=== PATIENT | female | born 1980 | race Caucasian/White ===

== ENCOUNTER 2017-04-05 09:09 | Inpatient (IN) | payer OTHER ==
[~2017-04-05] VITALS: Ht 165.1 cm; Wt 99.3 kg
[~2017-04-05 09:09] MED LIST: ANTIVERT 25 MG25 MG PO; BENTYL10 M1 PO; MONTELUKAST SOD10 M1 PO; VENTOLIN HFA18 GM INH; ZOFRAN ODT4 M1 SL; ZOFRAN ODT4 MG SL; [UNRECOGNIZED DRUG - OTHER] PO
[2017-04-05] MEDS ORDERED: ASPIRIN EC81 M1 PO (09:16)
[2017-04-05] MEDS ORDERED: TUMS200 MG PO (09:17)
[2017-04-05 09:24] VITALS: BP 138/84
--- NOTE | 2017-04-05 10:21 | History & Physical ---
General Information and HPI MD Statement: I have seen and personally examined CAROLYN OBANDO and documented this H&P. The patient is a 37 year old female at [40] weeks and 0 days gestation who presented with a chief complaint of [induction of labor for preeclampsia with mild features]. Source of Information: patient Exam Limitations: no limitations History of Present Illness: 37-year-old 4 para 2011 who presents at 40 weeks gestation for induction of labor. The patient was seen in the office yesterday . And was referred to the childbirth center for elevated blood pressures of 150/80 and 162/98. Blood work was within normal limits however her urine total protein creatinine ratio was 0.6. The fetus was reactive. The patient was referred for induction of labor today. Her is remarkable for a history of gestational hypertension with her last . She's been taking baby aspirin throughout her her last dose was yesterday. Additionally she has history of oligohydramnios with her previous . She is advanced for maternal age. She has a history of asthma and colitis. Allergies/Medications Allergies: Coded Allergies: Sulfa (Sulfonamide Antibiotics) (ANAPHYLAXIS 04/05/17) cephalexin (ANAPHYLAXIS 05/08/16) Home Med list Albuterol Sulfate (Ventolin Hfa) 18 GM HFA.AER.AD 2 PUF INH PRN SOB/WHEEZING (Reported) Aspirin (Ecotrin*) 81 MG TABLET.DR 1 TAB PO DAILY blood pressure (Reported) Calcium Carbonate (TUMS) 200 MG CALCIUM (500 MG) TAB.CHEW 2 TAB PO Q4 ACID REFLUX (Reported) Montelukast Sodium 10 MG TABLET 1 TAB PO DAILY ALLERGIES (Reported) Vit No.87/Iron/FA/Dha (Prenate Mini Softgel) 1 EACH CAPSULE 1 TAB PO DAILY SUPPLEMENT (Reported) Compliance With Home Meds: GOOD Past History top lift compressor History : 4 Para: 2 Last Menstrual Period: 06/29/2016 Estimated Delivery Date: April 05 Past top lift compressor History: HTN- associated, oligohydramnios, hemmorage, 2009 HEMORRHAGE OR RETAINED PRODUCTS OF CONCEPTION. pATIENT HAD A POST d&c WITH dR. Handy 2012 GESTATIONAL HYPERTENSION WITH SECOND , DID NOT RECEIVE MAG SULFATE, Past Pregnancies Past Pregnancies: Date of Delivery: 2009, 7 pound female, pph uterine atony/retained POCs, PP Dand C with Dr. Villatoro February 2013 8 pound male infant, hypertension and oligohydramnios. 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 EENTM: Reports: no symptoms. Cardiovascular: Reports: no symptoms. Respiratory: Reports: no symptoms. GI: Reports: no symptoms. Genitourinary: Reports: see HPI. Musculoskeletal: Reports: no symptoms. Skin: Reports: no symptoms. Neurological/Psychological: Reports: no symptoms. Hematologic/Endocrine: Reports: no symptoms. Immunologic/Allergic: Reports: no symptoms. All Other Systems: Reviewed and Negative Exam & Diagnostic Data Last 24 Hrs of Vital Signs/I&O Vital Signs Date Time Temp Pulse Resp B/P B/P Pulse O2 O2 Flow FiO2 Mean Ox Delivery Rate 04/05 0924 138/84 Intake & Output 04/05 1600 04/05 0800 04/05 0000 Intake Total Output Total Balance Patient 219 lb Weight Obstetric Exam Wgt Gained During : 30 pounds Pelvimetry: Proven to 8 pounds Dilation (cm): 1 (0.5cm) Effacement (%): 50 Station: -2 Membranes: intact Fluid: unknown Fundal Height (cm): 40 Multiple Gestation? No Contractions: None Infant #1 - FHR Baseline: 140 Category: 1 Estimated Weight: 8 Presentation: Vertex Patient for Induction? Yes Mcdonnell Score Mcdonnell Score Response Value Cervix Position: posterior 0 Cervix Consistency: medium 1 Cervix Effacement: 30-50% 1 Cervix Dilation: 1-2 cm 1 Total 3 Physical Exam General Appearance Alert, Oriented X3, Cooperative Skin No Rashes, No Breakdown, No Significant Lesion HEENT Atraumatic, PERRLA, EOMI, Mucous Membr. moist/pink Cardiovascular Regular Rate, Normal S1, Normal S2 Lungs Clear to Auscultation, Normal Air Movement Abdomen Normal Bowel Sounds, Soft, No Tenderness, No Hepatospenomegaly, No Masses, gravid Neurological Normal Gait, Normal Speech, Strength at 5/5 X4 Ext, Normal Tone Extremities No Clubbing, No Cyanosis, No Edema Vascular Normal Pulses, Pulses Symmetrical Reproductive (FEMALE) Normal female genitalia Labs Blood Type & Rh: Apos Antibody Screen: Negative Hct/Hgb & Platelets #1: 13.8 ,41.1 and 212 Hct/Hgb & Platelets #2: 12.3, 37.2, 188 Rubella: Immune VDRL #1: Negative VDRL #2: Negative HbsAg: Negative HIV #1: Negative HIV #2 Negative 1 Hr P Group B Strep: Positive Initial Ultrasound: declined 1st trimester screen Anatomy Ultrasound: 20 weeks and 6 days Ultrasound for EFW: 35 weeks and 6 days 50th percentile, anterior placenta Genetic Testing: Declined first trimester screening, normal hemoglobin electrophoresis plain amniocentesis or CVS negative cystic fibrosis Last 24 Hrs of Labs/Shyam: Laboratory Tests 04/05/17 1000: Urine Color Pending, Urine Clarity Pending, Urine pH Pending, Ur Specific [place] Pending, Urine Protein Pending, Urine Ketones Pending, Urine Nitrite Pending, Urine Bilirubin Pending, Urine Urobilinogen Pending, Ur Leukocyte Esterase Pending, Ur Microscopic Pending, Urine Hemoglobin Pending, Urine Glucose Pending 04/05/17 0940: CBC w Diff Pending, WBC Pending, RBC Pending, Hgb Pending, Hct Pending, MCV Pending, MCH Pending, RDW Pending, Plt Count Pending, MPV Pending, PUBS MCHC Pending Assessment/Plan Assessment/Plan: 37-year-old 4 para 2 at 40 weeks gestation presents for induction of labor for gestational hypertension/pre-eclampsia with mild features. Upon review of her chart her first office visit she had a blood pressure of 140/88 to 90 and then normal blood pressures until 37 weeks and 6 days which was 140/84, and the following visit which was 142/82 and then yesterday 150-162/80- 98. Risks, benefits, alternatives of misoprostol induction of labor was discussed. Misoprostol placed this morning at approximately 10 AM . Plan cervical ripening today and Pitocin in the a.m. History is also notable for asthma and a hemorrhage after her first delivery. Plan epidural as needed. Plan penicillin for GBS prophylaxis. As Ranked By This Provider Problem List: 1. Core Measures/Miscellaneous Venous Thromboembolism VTE Risk Factors: / VTE Contraindications: No Contraindications VTE Diagnosis: No Beta Steve Is Beta Steve a Home Med? No Antibiotics Is Patient on Antibiotics? No Attending MD Review Statement Attending Statement Attending MD Statement: examined this patient, discussed with family
[2017-04-05 11:47] LABS: ABSOLUTE BASOPHIL COUNT 0 /CUMM (0.0-0.2); ABSOLUTE EOSINOPHIL COUNT 0 /CUMM (0.0-0.7); ABSOLUTE LYMPH COUNT 1.5 /CUMM (1.2-3.4); ABSOLUTE MONOCYTE COUNT 0.4 /CUMM (0.10-0.60); BASOPHIL % 0.6 % (0.0-2.0); EOSINOPHIL % 0.5 % (0-5); GRANULOCYTE % 75.3 % (42.2-75.2); MEAN CORPUSCULAR VOLUME 88.4 FL (81.0-99.0); MEAN PLATELET VOLUME 11.5 FL (7.4-10.4); PLATELET COUNT 163 /CUMM (130-400); RBC DISTRIBUTION WIDTH 13.2 % (11.5-14.5); RED BLOOD CELL CT 4.18 /CUMM (4.20-5.40)
--- NOTE | 2017-04-06 14:19 | PN- OBGYN ---
Subjective Subjective: feeling well Review of Systems Constitutional: Reports: no symptoms. Denies: chills, fever. Cardiovascular: Denies: chest pain, palpitations. Neurological/Psychological: Denies: ataxia, depressed. Objective Last 24 Hrs of Vital Signs/I&O vss Physical Exam General Appearance Alert, Oriented X3, Cooperative, No Acute Distress Cardiovascular Regular Rate Lungs Clear to Auscultation Abdomen Soft, No Tenderness Obstetric Exam Dilation (cm): 1 Effacement (%): 50 Station: -2 Membranes: SROM Fluid: clear Multiple Gestation? No Contractions: irr #1 - FHR Baseline: 140 Category: 1 Estimated Weight: 8 Presentation: Vertex Current Medications: Current Medications Sig/Leslee Start time Last Medication Dose Route Stop Time Status Admin Butorphanol Tartrate 1 MG Q4P PRN 04/05 0930 AC 04/06 IV 1222 Butorphanol Tartrate 1 MG Q4P PRN 04/05 0930 AC IM Hydroxyzine HCl 100 MG AT BEDTIME PRN 04/05 2200 AC 04/06 PO 0015 Lactated Ringer's 1,000 ML Q8H 04/05 0930 AC 04/06 IV 1305 Misoprostol 25 MCG Q4P PRN 04/05 1030 AC 04/05 VAG 1004 Morphine Sulfate 10 MG ONCE ONE 04/05 1815 DC IM 04/05 1816 Oxytocin 30 UNITS PER PROTOCL 04/06 0745 AC Lactated Ringer's 500 ML IV Oxytocin 30 UNITS PER PROTOCL 04/05 1030 DC Lactated Ringer's 500 ML IV 04/06 1029 Vancomycin HCl 1,000 MG Q12 04/05 1136 AC 04/06 Sodium Chloride 250 ML IV 1306 Last 24 Hrs of Labs/Shyam: Laboratory Tests 04/06/17 1100: Membrane Rupture POSITIVE Microbiology 04/06 1414 URINE ROUT: Urine Culture - COLB Assessment/Plan Assessment/Plan pt now starting on pitocin for induction of labor cx 2 cm SROM clear Problem List: 1. Attending MD Review Statement Attending Statement Attending MD Statement: examined this patient, discussed with family, discussed w/nursing
--- NOTE | 2017-04-06 22:30 | Labor & Delivery Summary ---
Delivery Summary Vaginal Delivery: Vaginal: vertex Episiotomy/Lacerations: Type: 2 degree Repair: 3-0 polysorb Anesthesia: epidural Placenta: Placenta: spontanteous, normal, 3 vessel, nuchal cord (x_) Anesthesia: block Apgars - 1 Min: 9 Apgars - 5 Min: 9 Additional Comments: OP
[2017-04-07 06:08] LABS: ABSOLUTE BASOPHIL COUNT 0 /CUMM (0.0-0.2); ABSOLUTE EOSINOPHIL COUNT 0 /CUMM (0.0-0.7); ABSOLUTE GRANULOCYTE CT 10.9 /CUMM (1.4-6.5); ABSOLUTE LYMPH COUNT 1.4 /CUMM (1.2-3.4); ABSOLUTE MONOCYTE COUNT 0.6 /CUMM (0.10-0.60); BASOPHIL % 0 % (0.0-2.0); EOSINOPHIL % 0 % (0-5); GRANULOCYTE % 84.5 % (42.2-75.2); MEAN CORPUSCULAR HGB 30.2 PG (27.0-31.0); MEAN CORPUSCULAR VOLUME 88.8 FL (81.0-99.0); MEAN PLATELET VOLUME 11.2 FL (7.4-10.4); PLATELET COUNT 135 /CUMM (130-400); RBC DISTRIBUTION WIDTH 13.4 % (11.5-14.5); RED BLOOD CELL CT 3.32 /CUMM (4.20-5.40)
[2017-04-07 06:17] LABS: HEMATOCRIT 29.5 % (37-47); WHITE BLOOD CELL COUNT 12.9 /CUMM (4.8-10.8)
--- NOTE | 2017-04-07 10:29 | PN- OBGYN ---
Surgical Brief Attending Note Brief Attending Note: PPD#1 pt is doing well, no complaints. tolerate diet, void without difficulties. PE: VSS Cv RRR lungs CTA B/L abdomen: soft, nontender, uterus firm, fundus below umbilicus. lochia mild ext: DCT (-) A/P: 37yo, s/p , PPD #1 1. encourage ambulation and breast feeding 2.RT PP care
[2017-04-08] MEDS ORDERED: IBUPROFEN800 M1 PO (08:29)
--- NOTE | 2017-04-08 08:31 | PN- OBGYN ---
Surgical Brief Attending Note Brief Attending Note: PPD#2 pt is ambulating, no complaints. PE: VSS Cv RRR lungs CTA B/L Abdomen: soft, nontender, uterus firm , fundus below umbilicus, lochia mild Ext: edema(+), DCT (-) A/P: 37yo, s/p , PPD#2 1. encourage ambualtion 2. pain management as needed 3. will d/c home, f/u in office in 2 wks and 6 wks
== END 2017-04-08 10:30 | DRG 775 ==
LOC: GNO 09:09
PROVIDERS: Obstetrics & Gynecology; ADMIT Obstetrics & Gynecology
PROC: 3E0P7GC Introduction of Other Therapeutic Substance into Female Reproductive, Via Natural or Artificial Opening (ICD-10-PCS; 2017-04-05)
PROC: 10E0XZZ Delivery of Products of Conception, External Approach (ICD-10-PCS; principal; 2017-04-06)
PROC: 0KQM0ZZ Repair Perineum Muscle, Open Approach (ICD-10-PCS; 2017-04-06)
DX: O14.04 Mild to moderate pre-eclampsia, complicating childbirth (principal); J45.909 Unspecified asthma, uncomplicated; O13.4 Gestational [pregnancy-induced] hypertension without significant proteinuria, complicating childbirth; O09.523 Supervision of elderly multigravida, third trimester; Z3A.40 40 weeks gestation of pregnancy; Z37.0 Single live birth; O70.1 Second degree perineal laceration during delivery; O69.81X0 Labor and delivery complicated by cord around neck, without compression, not applicable or unspecified
CPT/HCPCS: GNOP; GNOS; 36415; 81001; 82570; 84112; 87086; J1885; J3370; J7040; J7120

== ENCOUNTER 2017-04-12 15:48 | Inpatient (IN) | payer OTHER ==
[~2017-04-12] VITALS: Ht 165.1 cm; Wt 92.5 kg
[~2017-04-12 15:48] MED LIST changes: +ASPIRIN EC81 M1 PO; +IBUPROFEN800 M1 PO; +TUMS200 MG PO
--- NOTE | 2017-04-12 16:25 | NUR ---
SENT BY DR. PERRIN FOR EVALUATION. S/P VAGINAL DELIVERY ON 04/06, (GR 3,P3) AT FOLLOW-UP APPOINTMENT ON 04/08, PT HAD HIGH BP, (168/82) PUT ON LABETOLOL 100 MG, HAS HAD 2 DOSES, FEELING WORSE WITH R SIDED NECK PAIN. STATES SHE PUSHED FOR 2 HOURS AT DELIVERY AND HAD PAIN ALL OVER AFTER.
--- NOTE | 2017-04-12 18:01 | ED GENERAL ADULT ---
History of Present Illness General Chief Complaint: General Adult Stated Complaint: HIGH BP Source: patient, family, old records Exam Limitations: no limitations Vital Signs & Intake/Output Vital Signs & Intake/Output Vital Signs Date Time Temp Pulse Resp B/P B/P Pulse O2 O2 Flow FiO2 Mean Ox Delivery Rate 04/12 1815 99.2 57 20 182/90 98 Room Air 04/12 1617 98.9 84 20 168/110 99 Room Air Allergies Coded Allergies: cephalexin (Severe, ANAPHYLAXIS 04/08/17) Reconcile Medications Albuterol Sulfate (Ventolin Hfa) 18 GM HFA.AER.AD 2 PUF INH PRN SOB/WHEEZING (Reported) Calcium Carbonate (TUMS) 200 MG CALCIUM (500 MG) TAB.CHEW 2 TAB PO Q4 ACID REFLUX (Reported) Labetalol HCl 100 MG TABLET 1 TAB PO BID BP (Reported) Montelukast Sodium 10 MG TABLET 1 TAB PO DAILY ALLERGIES (Reported) Triage Note: SENT BY DR. PERRIN FOR EVALUATION. S/P VAGINAL DELIVERY ON 04/06, (GR 3,P3) AT FOLLOW-UP APPOINTMENT ON 04/08, PT HAD HIGH BP, PUT ON LABETOLOL 100 MG, HAS HAD 2 DOSES, FEELING WORSE WITH R SIDED NECK PAIN. STATES SHE PUSHED FOR 2 HOURS AT DELIVERY AND HAD PAIN ALL OVER AFTER. Triage Nurses Notes Reviewed? yes : No Patient currently breastfeeds: No HPI: Patient is 6 days . Patient's blood pressure has been running elevated over the past 4 days. Patient denies any nausea or vomiting. There is no blurry vision. Patient had outpatient lab work which reportedly was okay. Patient was started on labetalol yesterday afternoon however her blood pressure remained elevated activities appointments she's was sent in for admission for presumed preeclampsia. Patient denies any chest pain or shortness of breath. Past History Travel History Traveled to [place] past 21 day No Medical History Any Pertinent Medical History? 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 No Review of Systems Review of Systems Constitutional: Reports: no symptoms. EENTM: Reports: no symptoms. Respiratory: Reports: no symptoms. Cardiovascular: Reports: no symptoms. GI: Reports: no symptoms. Genitourinary: Reports: no symptoms. Musculoskeletal: Reports: no symptoms. Skin: Reports: no symptoms. Neurological/Psychological: Reports: no symptoms. Hematologic/Endocrine: Reports: no symptoms. Immunologic/Allergic: Reports: no symptoms. All Other Systems: Reviewed and Negative Physical Exam Physical Exam General Appearance: well developed/nourished, alert, awake Head: atraumatic, normal appearance Eyes: Bilateral: PERRL, EOMI. Ears, Nose, Throat: normal pharynx, normal ENT inspection, hearing grossly normal Neck: normal inspection, supple, full range of motion, MUSCLE SPASM RIGHT POSTERIOR NECK Respiratory: normal breath sounds, chest non-tender, no respiratory distress, lungs clear Cardiovascular: regular rate/rhythm, normal peripheral pulses Gastrointestinal: normal bowel sounds, soft, non-tender, no organomegaly Extremities: normal inspection, normal capillary refill, normal range of motion, pedal edema Neurologic/Psych: no motor/sensory deficits, awake, alert, oriented x 3, normal gait, normal mood/affect Reflexes: 3+: tricep (L), tricep (L). 4+: bicep (R), bicep (L), knee (R), knee (L). Skin: intact, normal color, warm/dry Lymphatic: no anterior cervical angelita Core Measures ACS in differential dx? No CVA/TIA Diagnosis: No Severe Sepsis Present: No Septic Shock Present: No Progress Differential Diagnoses I considered the following diagnoses in my evaluation of the patient: [ Preeclampsia, HELLP syndrome, hypertension] Plan of Care: Orders Procedure Date/time Status Add-on Test (ER Only) 04/12 1826 Active LDH (LACT ACID DEHYDROGENASE) 04/12 1815 Active Admit to inpatient 04/12 1806 Active URINALYSIS 04/12 1739 Complete TROPONIN LEVEL 04/12 1739 Active COMPREHENSIVE METABOLIC PANEL 04/12 1739 Active CHOLESTEROL 04/12 1739 Active CBC WITHOUT DIFFERENTIAL 04/12 1739 Complete EKG 04/12 1628 Active Current Medications Sig/Leslee Start time Last Medication Dose Stop Time Status Admin Magnesium Sulfate 40 GM ONE 04/12 2000 AC (Mag Sulfate Infusion 40MG/ML) Water 1,000 ML (Sterile Water) Magnesium Sulfate 6 GM ONCE ONE 04/12 1845 AC Sodium Chloride 100 ML 04/12 2312 (Normal Saline 0.9%) Magnesium Sulfate 6 GM ONCE ONE 04/12 1800 CAN (Mag Sulfate in D5) 04/12 2159 Dextrose/Water 100 ML (D5W) Magnesium Sulfate 6 GM ONCE 04/12 0000 NR Sodium Chloride 100 ML 04/12 2359 (Normal Saline 0.9%) Laboratory Tests 04/12/17 1815: Sodium Pending, Potassium Pending, Chloride Pending, Carbon Dioxide Pending, Anion Gap Pending, BUN Pending, Creatinine Pending, BUN/Creatinine Ratio Pending , Glucose Pending, Calcium Pending, Total Bilirubin Pending, AST Pending, ALT Pending, Alkaline Phosphatase Pending, Lactate Dehydrogenase Pending, Troponin I Pending, Total Protein Pending, Albumin Pending, Globulin Pending, Albumin/ Globulin Ratio Pending, Cholesterol Pending, CBC w Diff NO MAN DIFF REQ, RBC 4.33, MCV 89.9, MCH 29.8, RDW 13.0, MPV 8.9, Gran % 69.6, Lymphocytes % 21.7, Monocytes % 6.6, Eosinophils % 1.6, Basophils % 0.5, Absolute Granulocytes 6.2, Absolute Lymphocytes 1.9, Absolute Monocytes 0.6, Absolute Eosinophils 0.1, Absolute Basophils 0, PUBS MCHC 33.1, Urine Color STRAW, Urine Clarity CLEAR, Urine pH 6.5, Ur Specific [place] <= 1.005, Urine Protein NEG, Urine Ketones NEG , Urine Nitrite NEG, Urine Bilirubin NEG, Urine Urobilinogen 0.2, Ur Leukocyte Esterase SMALL H, Ur Microscopic SEDIMENT EXAMINED, Urine RBC 1-3, Urine WBC 1- 3 H, Ur Epithelial Cells RARE, Urine Hemoglobin LARGE H, Urine Glucose NEG Initial ED EKG: SR WITH BORDERLINE VOLTAGE CRITERIA FOR LVH Comments: pt to be given Mag sulfate 6g over 30 minutes. Departure Departure Disposition: STILL A PATIENT Condition: Guarded Clinical Impression Primary Impression: Preeclampsia Qualifiers: Trimester: unspecified trimester Qualified Code: O14.90 - Unspecified pre-eclampsia, unspecified trimester Referrals: COREY FORRESTER,INGE Lazaro (PCP/Family) Departure Forms: Customer Survey General Discharge Information Admission Note Spoke With: KATHRYN FORRESTER,STEPHAN Guevara Documentation of Exam: Documentation of any treatments & extenuating circumstances including Concerns Regarding Discharge (functional status, medication knowledge or non-compliance, living conditions, etc.) that warrant an admission rather than observation: [ MAGNESIUM DRIP, CLOSE MONITORING] Critical Care Note Critical Care Note Critical Care Time: mins: (45 MIN)
--- NOTE | 2017-04-12 18:22 | NUR ---
BLOOD WORK DRAWN AND SENT TO LAB: SST, LAV, BLUE, MCKAY AND PINK TOPS. URINE TRIO ALSO SENT TO LAB. IV EST TO [facility].
[2017-04-12] MEDS ORDERED: LABETALOL HCL100 M1 PO (18:31)
[2017-04-12 18:40] LABS: ABSOLUTE BASOPHIL COUNT 0 /CUMM (0.0-0.2); ABSOLUTE EOSINOPHIL COUNT 0.1 /CUMM (0.0-0.7); ABSOLUTE GRANULOCYTE CT 6.2 /CUMM (1.4-6.5); ABSOLUTE LYMPH COUNT 1.9 /CUMM (1.2-3.4); ABSOLUTE MONOCYTE COUNT 0.6 /CUMM (0.10-0.60); BASOPHIL % 0.5 % (0.0-2.0); EOSINOPHIL % 1.6 % (0-5); GRANULOCYTE % 69.6 % (42.2-75.2); HEMATOCRIT 38.9 % (37-47); MEAN CORPUSCULAR HGB 29.8 PG (27.0-31.0); MEAN CORPUSCULAR HGB CONC 33.1 G/DL (33.0-37.0); MEAN CORPUSCULAR VOLUME 89.9 FL (81.0-99.0); MEAN PLATELET VOLUME 8.9 FL (7.4-10.4); PLATELET COUNT 269 /CUMM (130-400); RED BLOOD CELL CT 4.33 /CUMM (4.20-5.40); WHITE BLOOD CELL COUNT 8.9 /CUMM (4.8-10.8)
--- NOTE | 2017-04-12 19:16 | NUR ---
PT MEDICATED WITH MAG SULFATE PER VERBAL ORDER OF DR. ROLAND. 100MLS AT 200 MLS/HR (OVER 30 MINS). DOSE/PROTOCOL VERIFIED WITH PHARMACIST. DOSE ALSO VERIFIED WITH TATO LUKE. PT ON ALUMNI COORDINATOR WITH CYCLING BP'S.
--- NOTE | 2017-04-12 19:33 | NUR ---
PT REPORTS FEELING HOT WHILE MAGNESIUM IS RUNNING. VSS, BP160/84 MANUALLY. AFEBRILE. MD ROLAND AWARE AND MAGNESIUM INFUSION SLOWED TO 50MLS/HR PER MD ROLAND.
--- NOTE | 2017-04-12 20:07 | NUR ---
MAG SULFATE INFUSION RUNNING 40G AT 50MLS/HR PER ORDER. PT TOLERATING INFUSION WELL. VSS. DENIES BLURRED VISION.
--- NOTE | 2017-04-12 20:27 | NUR ---
PT C/O 05/04 HEADACHE. MD ROLAND TO BEDSIDE. PT DENIES DIZZINESS, BLURRED VISION. VSS. MEDICATED WITH TORADOL PER EMAR. PT TOLERATED WELL. WILL CTM AND REEVAL.
--- NOTE | 2017-04-12 20:31 | NUR ---
PT HAS 2+ NORMAL DEEP TENDON REFLEXES NOTED.
--- NOTE | 2017-04-12 21:56 | NUR ---
REPORT GIVEN TO [facility] TRANSPORT BOOKED
[2017-04-13 01:30] VITALS: BP 166/100
--- NOTE | 2017-04-13 03:45 | History & Physical ---
General Information and HPI MD Statement: I have seen and personally examined CAROLYN OBANDO and documented this H&P. The patient is a 37 year old F who presented with a patient stated chief complaint of post PIH Source of Information: patient, old records Exam Limitations: no limitations History of Present Illness: pt is s/p delivery has been in the office with elevated BP and Headache Allergies/Medications Allergies: Coded Allergies: cephalexin (Severe, ANAPHYLAXIS 04/08/17) Home Med list Albuterol Sulfate (Ventolin Hfa) 18 GM HFA.AER.AD 2 PUF INH PRN SOB/WHEEZING (Reported) Calcium Carbonate (TUMS) 200 MG CALCIUM (500 MG) TAB.CHEW 2 TAB PO Q4 ACID REFLUX (Reported) Labetalol HCl 100 MG TABLET 1 TAB PO BID BP (Reported) Montelukast Sodium 10 MG TABLET 1 TAB PO DAILY ALLERGIES (Reported) Compliance With Home Meds: GOOD Past History Travel History Traveled to [place] past 21 day No Medical History Neurological: NONE EENT: NONE Cardiovascular: NONE, MATERNAL ARRHYTHMIA 2012, ADMITTED TO TELEMETRY NEGATIVE CARDIAC EVALUATION AND NORMAL ECHO Respiratory: asthma Gastrointestinal: colitis, ULCERATIVE CHOLANINEOUS Hepatic: NONE Renal: NONE Musculoskeletal: NONE Psychiatric: NONE Endocrine: NONE Blood Disorders: NONE 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 EENTM: Denies: blurred vision, double vision, visual changes. Cardiovascular: Reports: edema. Denies: chest pain. Respiratory: Denies: cough, short of breath. GI: Denies: abdominal pain, constipation, nausea, vomiting. Genitourinary: Denies: dysuria. Neurological/Psychological: Reports: headache. Denies: anxiety, confusion, depressed, numbness, tremors, tonic-clonic seizures. Exam & Diagnostic Data Last 24 Hrs of Vital Signs/I&O Vital Signs Date Time Temp Pulse Resp B/P B/P Pulse O2 O2 Flow FiO2 Mean Ox Delivery Rate 04/13 0130 97.0 65 20 166/100 04/12 2250 97.6 66 18 176/98 04/12 2130 60 140/70 04/12 2006 98.6 68 18 172/88 99 Room Air 04/12 1935 98.2 67 18 160/84 99 Room Air 04/12 1921 Room Air Room Air 04/12 1815 99.2 57 20 182/90 98 Room Air 04/12 1617 98.9 84 20 168/110 99 Room Air Intake & Output 04/13 0800 04/13 0000 04/12 1600 Intake Total 0 Output Total Balance 0 Intake, Oral 0 Patient 204 lb Weight Weight Reported by Patient Measurement Method Physical Exam General Appearance Alert, Oriented X3, Cooperative, No Acute Distress Cardiovascular Regular Rate Lungs Clear to Auscultation Neurological Normal Gait, Normal Speech, Strength at 5/5 X4 Ext, Reflexes 2+ Last 24 Hrs of Labs/Shyam: Laboratory Tests 04/13/17 0100: Magnesium 4.7 H 04/12/17 181: Anion Gap 11, Estimated GFR > 60, BUN/Creatinine Ratio 10.0, Glucose 76, Calcium 10.1, Total Bilirubin 0.4, AST 34, ALT 42, Alkaline Phosphatase 90, Lactate Dehydrogenase 705 H, Troponin I < 0.01, Total Protein 6.9, Albumin 3.8, Globulin 3.1, Albumin/Globulin Ratio 1.2, Cholesterol 255 H, CBC w Diff NO MAN DIFF REQ, RBC 4.33, MCV 89.9, MCH 29.8, RDW 13.0, MPV 8.9, Gran % 69.6, Lymphocytes % 21.7, Monocytes % 6.6, Eosinophils % 1.6, Basophils % 0.5, Absolute Granulocytes 6.2, Absolute Lymphocytes 1.9, Absolute Monocytes 0.6, Absolute Eosinophils 0.1, Absolute Basophils 0, PUBS MCHC 33.1, Urine Color STRAW, Urine Clarity CLEAR, Urine pH 6.5, Ur Specific [place] <= 1.005, Urine Protein NEG, Urine Ketones NEG, Urine Nitrite NEG, Urine Bilirubin NEG, Urine Urobilinogen 0.2, Ur Leukocyte Esterase SMALL H, Ur Microscopic SEDIMENT EXAMINED, Urine RBC 1-3, Urine WBC 1-3 H, Ur Epithelial Cells RARE, Urine Hemoglobin LARGE H, Urine Glucose NEG Assessment/Plan Assessment: Post PIH As Ranked By This Provider Problem List: 1. Preeclampsia Qualifiers Trimester: unspecified trimester Qualified Code: O14.90 - Unspecified pre- eclampsia, unspecified trimester Core Measures/Miscellaneous Acute Coronary Syndrome ACS Diagnosis: No Cerebrovascular Accident CVA/TIA Diagnosis: No Congestive Heart Failure CHF Diagnosis: No VTE (View Protocol) VTE Risk Factors: / No Mech VTE prophylaxis d/t: VTE low risk No VTE Pharm Prophylaxis d/t: VTE low risk VTE Diagnosis: No VTE Type: NONE VTE Confirmed by (Test): NONE Sepsis (View Protocol) Severe Sepsis Present: No Septic Shock Septic Shock Present: No Miscellaneous Documentation Attending Case Discussed With: KATHRYN FORRESTER,STEPHAN Guevara Primary Care Physician: INGE NICOLE MD Patient sees these Specialists none Level of Patient Care: [facility] Attending MD Review Statement Attending Statement Attending MD Statement: examined this patient, discussed with nursing Attending Assessment/Plan: post PIH No HELLP BP will be treated with oral meds will start MgSO4 6G load and 2G/hour maintance for 24 hours
[2017-04-13 09:38] LABS: ABSOLUTE BASOPHIL COUNT 0.1 /CUMM (0.0-0.2); ABSOLUTE EOSINOPHIL COUNT 0.1 /CUMM (0.0-0.7); ABSOLUTE GRANULOCYTE CT 4.2 /CUMM (1.4-6.5); ABSOLUTE LYMPH COUNT 1.4 /CUMM (1.2-3.4); ABSOLUTE MONOCYTE COUNT 0.4 /CUMM (0.10-0.60); BASOPHIL % 0.8 % (0.0-2.0); EOSINOPHIL % 2.3 % (0-5); GRANULOCYTE % 68.4 % (42.2-75.2); HEMATOCRIT 37.2 % (37-47); MEAN CORPUSCULAR HGB 29.6 PG (27.0-31.0); MEAN CORPUSCULAR HGB CONC 33.3 G/DL (33.0-37.0); MEAN CORPUSCULAR VOLUME 88.9 FL (81.0-99.0); MEAN PLATELET VOLUME 9.1 FL (7.4-10.4); PLATELET COUNT 286 /CUMM (130-400); RBC DISTRIBUTION WIDTH 13.1 % (11.5-14.5); RED BLOOD CELL CT 4.19 /CUMM (4.20-5.40); WHITE BLOOD CELL COUNT 6.2 /CUMM (4.8-10.8)
--- NOTE | 2017-04-13 14:31 | PN- OBGYN ---
Surgical Brief Attending Note Brief Attending Note: Assumed care from 8 AM 37-year-old, status post normal vaginal delivery, day 6, she was admitted yesterday due to preeclampsia, she received magnesium sulfate IV, she also takes labetalol 200 mg twice a day for hypertension. Overnight, patient BP with normal range, no complaints, PIH labs normal, uric acid 6.6, urine protein negative. Magnesium level was therapeutic. Urine output adequate. Patient is being nothing by mouth overnight, will give by mouth intake, will monitor closely
[2017-04-13] MEDS ORDERED: LABETALOL HCL200 M1 PO (15:40)
--- NOTE | 2017-04-13 15:44 | PN- OBGYN ---
Surgical Brief Attending Note Brief Attending Note: pt is doing well, s/p MgSO4 , no complaints VSS, denies headache, blur vision, no epigastric pain. will d/w home, continue labetalol 200mg BID, f/u in office early Next week, precautions given to pt, she understand.
== END 2017-04-13 16:00 | DRG 776 ==
LOC: ERH 15:48 → ENRESERV 21:56 → ENTRNSPT 21:56 → EDTRNSPTSTS 22:04 → CMPTRNSPT 22:20 → ERH 22:23 → GNO 22:23 → ERHI 22:36 → GNO 23:00
PROVIDERS: Obstetrics & Gynecology; Physician Assistant; ADMIT Obstetrics & Gynecology
DX: O14.95 Unspecified pre-eclampsia, complicating the puerperium (principal); J45.909 Unspecified asthma, uncomplicated
CPT/HCPCS: 36415; 81001; 93005; 93010; 96365; 96375; 99291; J1885; J3475